=== PATIENT | male | born 1935 | race Caucasian/White ===

== ENCOUNTER 2022-11-22 18:26 | Emergency (ER) | payer MEDICARE, OTHER ==
[~2022-11-22] VITALS: Ht 162.6 cm; Wt 68.0 kg
[~2022-11-22 18:26] MED LIST: AMLO10 PO; ASPI81CH PO; Ativan0.5 MG PO; INTUNIV2 MG PO; MECL25 PO
[2022-11-22 18:37] VITALS: BP 232/97
[2022-11-22 19:01] LABS: BASOPHILS ABSOLUTE AUTO 0.09 K/mm3 (0.00-0.23); BASOPHILS PERCENT AUTO 2 % (0-2); EOSINOPHILS ABSOLUTE AUTO 0.15 K/mm3 (0.00-0.68); EOSINOPHILS PERCENT AUTO 3 % (0-6); Hematocrit 36.4 % (37.0-53.0); IMMATURE GRAN ABSOLUTE AUTO 0.01 K/mm3 (0.00-0.10); IMMATURE GRAN PERCENT AUTO 0 % (0-1); LYMPHOCYTES ABSOLUTE AUTO 1.47 K/mm3 (0.84-5.20); LYMPHOCYTES PERCENT AUTO 24 % (21-46); MONOCYTES ABSOLUTE AUTO 0.58 K/mm3 (0.16-1.47); MONOCYTES PERCENT AUTO 10 % (4-13); Mean Corpuscular HGB 30.8 pg (26.0-34.0); Mean Corpuscular Volume 94 fL (80-100); Mean Platelet Volume 11.2 fL (9.1-12.4); NEUTROPHILS PERCENT AUTO 62 % (41-73); Platelet Count 227 K/mm3 (150-400); RDW Coefficient Variation 13.4 % (11.7-14.2); RDW Standard Deviation 46.3 fL (35.1-46.3); Red Blood Cell Count 3.89 M/mm3 (4.30-5.90)
[2022-11-22 19:20] LABS: Albumin, Blood 3.7 g/dL (3.4-5.0); Albumin/Globulin Ratio 0.9 (0.8-1.8); Bilirubin, Total 0.8 mg/dL (0.1-1.0); Calcium, Blood 8.9 mg/dL (8.5-10.1); Creatinine, Blood 1.42 mg/dL (0.60-1.20); Globulin, Blood 3.9 g/dL (2.2-4.0); Magnesium, Blood 2.1 mg/dL (1.6-2.4); Potassium, Blood 3.7 mmol/L (3.5-5.5); Total Protein, Blood 7.6 g/dL (6.4-8.2)
[2022-11-22] MEDS ORDERED: GUANFACINE HCL2 M1 PO (22:25)
== END 2022-11-22 22:45 | disposition home or self-care (01) ==
LOC: ER 18:26
PROVIDERS: Physician Assistant
DX: S00.81XA Abrasion of other part of head, initial encounter (principal); W19.XXXA Unspecified fall, initial encounter; Z88.0 Allergy status to penicillin; Z88.1 Allergy status to other antibiotic agents; Z88.7 Allergy status to serum and vaccine; Z79.82 Long term (current) use of aspirin; Z79.899 Other long term (current) drug therapy; I10 Essential (primary) hypertension; R73.03 Prediabetes
CPT/HCPCS: 70450; 72125; 80053; 83735; 85025; 93005; 93010; 99284-25

== ENCOUNTER 2023-10-19 14:20 | Inpatient (IN) | payer OTHER, MEDICARE ==
[~2023-10-19] VITALS: Ht 177.8 cm; Wt 81.7 kg
[~2023-10-19 14:20] MED LIST changes: +GUANFACINE HCL2 M1 PO
[2023-10-19 14:42] LABS: BASOPHILS PERCENT AUTO 1 % (0-2); EOSINOPHILS ABSOLUTE AUTO 0.09 K/mm3 (0.00-0.68); EOSINOPHILS PERCENT AUTO 1 % (0-6); Hemoglobin 11.7 g/dL (13.5-17.5); IMMATURE GRAN ABSOLUTE AUTO 0.11 K/mm3 (0.00-0.10); IMMATURE GRAN PERCENT AUTO 2 % (0-1); LYMPHOCYTES ABSOLUTE AUTO 1.64 K/mm3 (0.84-5.20); LYMPHOCYTES PERCENT AUTO 22 % (21-46); MONOCYTES ABSOLUTE AUTO 0.38 K/mm3 (0.16-1.47); MONOCYTES PERCENT AUTO 5 % (4-13); Mean Corpuscular HGB 30.8 pg (26.0-34.0); Mean Corpuscular HGB Conc 32.5 g/dL (31.5-36.5); Mean Corpuscular Volume 95 fL (80-100); Mean Platelet Volume 11.3 fL (9.1-12.4); NEUTROPHILS ABSOLUTE AUTO 5.13 K/mm3 (1.96-9.15); NEUTROPHILS PERCENT AUTO 69 % (41-73); Platelet Count 217 K/mm3 (150-400); RDW Coefficient Variation 13.3 % (11.7-14.2); White Blood Cell Count 7.45 K/mm3 (4.00-11.30)
[2023-10-19 15:00] LABS: International Normalized Ratio 0.98; Prothrombin Time Results 10.5 Sec (9.7-11.5)
[2023-10-19 15:16] LABS: Alanine Aminotransfer (ALT/SGP 31 U/L (12-78); Albumin, Blood 3.9 g/dL (3.4-5.0); Albumin/Globulin Ratio 1.1 (0.8-1.8); Alk Phos 100 U/L (50-136); Anion Gap 9 mmol/L (3-11); Aspartate Aminotrans (AST/SGOT 39 U/L (12-37); Bilirubin, Total 1.3 mg/dL (0.1-1.0); Blood Urea Nitrogen 25 mg/dL (8-24); Bun/Creatinine Ratio 15.2 (12.0-20.0); CO2, Blood 25 mmol/L (21-32); Calcium, Blood 9.1 mg/dL (8.5-10.1); Chloride, Blood 108 mmol/L (98-108); Creatinine, Blood 1.65 mg/dL (0.60-1.20); Ethanol (Alcohol), Blood, Med <3 mg/dL; Globulin, Blood 3.7 g/dL (2.2-4.0); Glomerular Filtration Rate 40 (60-); Glucose, Blood 132 mg/dL (70-99); Potassium, Blood 4.2 mmol/L (3.5-5.5); Sodium, Blood 138 mmol/L (136-145); Total Protein, Blood 7.6 g/dL (6.4-8.2)
[2023-10-19] MEDS ORDERED: LORazepam 2 MG/ML 1ML Injection IV ONE (15:40)
[2023-10-19 16:19] LABS: Source, Urine Voided
[2023-10-19 16:21] LABS: Appearance, Urine Clear (Clear); Bilirubin, Urine Neg (Neg); Blood, Urine 4+ (Neg); Color, Urine Yellow (P-Yellow); Glucose Qualitative, Urine Neg (Neg); Ketones, Urine Neg (Neg); Leukocyte Esterase, Urine Neg (Neg); Nitrite, Urine Neg (Neg); Protein, Urine 2+ (Neg); Urobilinogen, Urine NORM (Normal); pH, Urine 6.5 (5.0-8.0)
[2023-10-19 16:31] LABS: Bacteria Rare /hpf; Mucus Light (0-Heavy); Squamous Epithelial Cells Rare /hpf (Few); White Blood Cells, Urine 0-2 /hpf (0-5)
[2023-10-19 16:32] LABS: Hyaline Casts 0-2 /lpf (0-2)
[2023-10-19] MEDS ORDERED: DiphenhydrAMINE HCl 50 MG/ML 1ML Vial IV ONE (16:50)
[2023-10-19] MEDS ORDERED: Haloperidol Lactate Inj. 5 MG/ML Injection IV ONE (16:50)
[2023-10-19] MEDS ORDERED: OLANZapine ODT 5 MG Tab MM PRN (18:05)
[2023-10-19] MEDS ORDERED: Magnesium Hydroxide Conc 10 ML UDC PO PRN (18:10)
[2023-10-19] MEDS ORDERED: TraMADol HCl 50 MG Tab PO PRN (18:10)
[2023-10-19] MEDS ORDERED: TraZODone HCl 50 MG Tab PO PRN (18:10)
[2023-10-19] MEDS ORDERED: Acetaminophen 325 MG TABLET PO PRN (18:10)
[2023-10-19] MEDS ORDERED: GUANFACINE HCL2 M1 PO (19:16)
[2023-10-19 19:32] VITALS: BP 154/67
[2023-10-19] MEDS ORDERED: AmLODIPine Besylate 5 MG Tab PO SCH (21:00)
[2023-10-19] MEDS ORDERED: GuanFACINE HCl 1 MG Tab PO SCH (21:00)
[2023-10-19 22:02] LABS: U Amphetamine Screen Not Detected; U Barbituate Screen Not Detected; U Benzodiazapine Screen Not Detected; U Buprenorphine Screen Not Detected; U Cannabinoids Screen Not Detected; U Cocaine Screen Not Detected; U Methadone Screen Not Detected; U Methamphetamine Screen Not Detected; U Opiates Screen Not Detected; U Oxycodone Screen Not Detected; U Phencyclidine Screen Not Detected
--- NOTE | 2023-10-20 03:28 | NUR ---
LATE ENTRY FOR 1930 ON 10/19/23: ADMISSION:PATIENT IS RECIEVED FROM ER, DAUGHTER IS AT BEDSIDE. PATIENT IS VERY [place], NEEDS HEARING AIDES PER DAUGHTER. PATIENT AND DAUGHTER ARE ORIENTED TO THE ROOM AND CALL CORTES, PATIENT IS UNRESEPTIVE. BP IS SLIGHTLY ELEVATED, PATIENT IS RESTLESS, BED ALARM IS ON. DAUGHTER WILL BE STAYING UNTIL 1 ON 1 SITTER ARRIVES.
[2023-10-20 04:35] VITALS: BP 150/83
[2023-10-20] MEDS ORDERED: Morphine Sulfate 4 MG/1 ML Injection IV ONE (05:10)
--- NOTE | 2023-10-20 05:30 | NUR ---
Patient is refusing PO medications with sips of water. Was able to take HS meds without difficulty. Scoring [address] Thomas was notified and an order for 2 mg of IV morphine x1 was obtained and meds was given. Patient does resist inc. care and T&P at times. Patient is extremly [place] and needs hearing aids per his daughter.
[2023-10-20 06:01] LABS: Albumin, Blood 3.8 g/dL (3.4-5.0); Bilirubin, Total 2.3 mg/dL (0.1-1.0); Bun/Creatinine Ratio 16.1 (12.0-20.0); Calcium, Blood 9.1 mg/dL (8.5-10.1); Creatinine, Blood 1.55 mg/dL (0.60-1.20); Potassium, Blood 4.5 mmol/L (3.5-5.5); Total Protein, Blood 7.8 g/dL (6.4-8.2)
--- NOTE | 2023-10-20 06:39 | NUR ---
Patient had good effect from IV morphine and is resting comfortably. Stter remains at bedside.
[2023-10-20 07:13] VITALS: BP 154/65
[2023-10-20] MEDS ORDERED: Enoxaparin 40 MG/0.4 ML SYR SC SCH (09:00)
[2023-10-20 15:30] VITALS: BP 186/107
[2023-10-20] MEDS ORDERED: OLANZapine ODT 5 MG Tab MM PRN (16:20)
--- NOTE | 2023-10-20 16:39 | NUR ---
PROVIDER CONTACT PATIENT WITH INCREASING AGITATION, ANXIETY, AND SBP IN 180s. ATTENDING NOTIFIED VIA PHONE AND STATED SHE WOULD INCREASE SCHEDULED BP MEDICATION WELL INCREASE FREQUENCY OF ZYPREXA.
[2023-10-20] MEDS ORDERED: Metoprolol Succinate 25 MG TABCR PO SCH (17:00)
--- NOTE | 2023-10-20 19:09 | NUR ---
SHIFT SUMMARY PATIENT DISORIENTEDX4, UNCOOPERATIVE WITH CARE D/T CONFUSION. WENT TO BEDSIDE COMMODE X2 THIS SHIFT WITH 2 PERSON ASSIST. PATIENT'S DAUGHTER AT BEDSIDE MOST OF SHIFT TODAY. PT/OT ORDERED TODAY, BUT NOT YET ASSESSED. PSYCH EVAL WAS ORDERED AND MD STATED WILL ASSESS PATIENT 10/20 IN THE MORNING. PATIENT SHOWING S/S OF PAIN, MEDICATED PER JUN. WAS GIVEN ZYPREXA THIS AM DUE TO AGITATION AND BEING COMBATIVE WITH STAFF. NO OTHER CONCERNS AT THIS TIME.
[2023-10-20 20:32] VITALS: BP 143/122
[2023-10-20] MEDS ORDERED: Morphine Sulfate 4 MG/1 ML Injection IV PRN (20:45)
[2023-10-20] MEDS ORDERED: OLANZapine 10 MG Vial IM ONE (20:45)
[2023-10-21] VITALS (7 sets, daily range): BP systolic 123–216; BP diastolic 78–170
[2023-10-21] MEDS ORDERED: Morphine Sulfate 4 MG/1 ML Injection IV ONE (02:00)
[2023-10-21] MEDS ORDERED: Morphine Sulfate 4 MG/1 ML Injection IV PRN (02:00)
--- NOTE | 2023-10-21 02:42 | NUR ---
AGGITATION: PATIENT STARTED TEARING BRIEF OFF, TRYING TO GET UP OUT OF BED. PATIENT IS UNDIRECTABLE, WILL NOT TAKE ANY PO FLUIDS OR FOOD. SCORES A 7 ON FLACC SCALE BUT IT IS TO EARLY FOR IV MORPHINE FOR PAIN. DR MERLOS IS NOTIFIED AND MORPHINE DOSE FREQUENCE IS CHANGED TO Q4H WITH A NOW DOSE. PATIENT WAS GIVEN MORPHINE WITH FAIR EFFECT. PATIENT IS CALMER IN BED, WITH BED ALARM ON. SITTER HAS DIRECT OBSERVATION OF PAYIENT FROM THE DOOR. PATIENT WILL NOT KEEP BRIEF OR GOWNED ON.
--- NOTE | 2023-10-21 04:07 | NUR ---
PATIENT CONTINUES TO BE RESTLESS AND EASILY AGGITATED. WILL NOT KEEP BRIEF OR GOWN ON. REFUSING PO INTAKE INCLUDING MOST MEDS. PING PONG TABLE ASSEMBLER WAS ABLE TO ADMINISTER A SL DOSE OF ZYPREXA THIS AM WITH FAIR EFFECT. DAYANARA HAS PATIENT IN CONTINUOS OBSERVATION.
--- NOTE | 2023-10-21 07:09 | NUR ---
LATE ENTRY FOR 10/20/23 @ 2130: PATIENT IS AGGITATED AND AGRESSIVE WITH STAFF. ON HIS FEET TRYING TO PUSH PASSED SENIOR AGRICULTURAL ASSISTANT, "I AM GETTING OUT OF HERE". PATIENT REFUSED TO TAKE ORAL ZYPREXA OR PAIN MEDS OR ANY PO INTAKE. DR AZAR WAS NOTIFIED AND ORDERS WERE OBTAINED FOR IN ZYPREXA AND IV MORPHINE. BOTH WERE GIVEN WITH GOOD EFFECT. SITTER IS NOW IN PLACE, KEEPING PATIENT IN VIEW AT ALL TIMES, BED ALARM IS ON.
[2023-10-21 09:04] LABS: Albumin, Blood 3.9 g/dL (3.4-5.0); Bilirubin, Total 2.2 mg/dL (0.1-1.0); Bun/Creatinine Ratio 19.9 (12.0-20.0); Calcium, Blood 8.9 mg/dL (8.5-10.1); Creatinine, Blood 1.51 mg/dL (0.60-1.20); Globulin, Blood 3.9 g/dL (2.2-4.0); Potassium, Blood 4.1 mmol/L (3.5-5.5); Total Protein, Blood 7.8 g/dL (6.4-8.2)
--- NOTE | 2023-10-21 09:09 | NUR ---
SBP 215, MD AWARE.
--- NOTE | 2023-10-21 11:30 | NUR ---
SPOKE WITH MD REGARDING PATIENT'S DAUGHTER'S REQUEST FOR IV FLUIDS. PATIENT'S INTAKE IS LOW, REFUSING BEVERAGES WHEN OFFERED AND REFUSING MEALS TODAY. PATIENT BECOMES COMBATIVE WHEN CARE IS ATTEMPTED DUE TO CONFUSION AND DISORIENTATION. INFORMED PATIENT'S DAUGHTER THAT AT THIS TIME PATIENT WOULD NOT LIKELY TOLERATE IV HYDRATION HE IS PULLING AT LINES AND REMOVING ALL CLOTHING AND BLANKETS. DISCUSSED REQUEST WITH MD AND SHE STATED SHE WOULD SPEAK TO THE PATIENT'S DAUGHTER.
[2023-10-21] MEDS ORDERED: HydrALAZINE HCl 20 MG / ML 1ML Vial IV PRN (12:15)
[2023-10-21] MEDS ORDERED: Tamsulosin HCl 0.4 MG Cap PO SCH (14:00)
--- NOTE | 2023-10-21 15:12 | NUR ---
PATIENT BP 217/170, HYDRALAZINE IV ATTEMPTED TO BE ADMINISTERED AND IV NO LONGER FUNCTIONING. PATIENT ALSO WITH TREMOR, PATIENT'S HAND WAS HELD STILL WHILE TAKING VITAL SIGNS. ATTEMPTED TO CALL MD TO INFOMR OF PATIENT'S STATUS, NO ANSWER. WILL ATTEMPT TO REACH HER AGAIN. WILL ALSO ATTEMPT TO PLACE NEW PIV, HOWEVER PATIENT IS COMBATIVE WHEN CARE IS PROVIDED.
--- NOTE | 2023-10-21 16:25 | NUR ---
NEW PIV PLACED TO LEFT WRIST 22G. PATIENT TOLERATED WELL AND WAS NOT COMBATIVE DURING PLACEMENT. BP WAS RETAKEN AND 188/90, PRN HYDRALAZINE GIVEN AND BP LOWERED TO 166/78. PALLIATIVE CARE CONSULTED AND STATED THEY WILL SPEAK WITH MD. PATIENT CONTINUES WITH TREMORS. PSYCH EVAL WAS COMPLETED.
--- NOTE | 2023-10-21 17:26 | NUR ---
PATIENT TRANSFERRED FROM [facility] TO ROOM 351, REPORT RECEIVED FROM LINDSAY. 2 RN SKIN CHECK PERFORMED WITH LINDSYA ON TRANSFER. PATIENT DROWSY, WAKES TO VOICE. CONFUSED THROUGHOUT THE DAY. B/P ELEVATED, MEDICATION ADJUSTED AND IV HYDRALAZINE GIVEN. B/P DOWN TO 166/78. 1:1 CLININCAL SITTER AT BEDSIDE FOR SAFETY. PATIENT NOT EATING OR DRINKING. PALLIATIVE CARE INVOLVED.
--- NOTE | 2023-10-21 17:54 | NUR ---
DISCUSSED PATIENT WITH MULTIDICIPLINARY TEAM. DISCUSSED CASE WITH BEDSIDE RN AND PROVIDER. SPOKE WITH ON THE PHONE, SHE REPORTED THAT FRANCO HAS HAD SOME TIA'S OVER THE LAST FEW YEARS, HAS HAD SOME CONFUSION. SHE REPORTED HAT HE HAS BEEN SLEEPING MORE DURING THE DAY AND GOING TO BED EARLIER. SHE REPORTED THAT HE ONLY DRINKS ABOUT 4 16 OZ GLASSES OF WATER A DAY. SHE SAID HE IS HARD OF HEARING. REPORTED THEY HAD THEIR 65 YEAR ANIVERSERY OCTOBER 11. WE DISCUSSED HIS CURRENT CONDITION AND CONFUSION. DISCUSSED HIS POOR ORAL FLUID INTAKE AND THE CONCERN ABOUT GETTING IV FLUIDS IN WITHOUT HIM PULLING THE IV OUT. SHE EXPRESSED THAT SHE WOULD BE OK WITH RESTRAINING HIM IF THATS WHAT IT WILL TAKE. WE DISCUSSED CODE STATUS. SHE WILL DISCUSS THIS WITH HER DAUGHTER BUT IS INCLINED TO LEAVE HIM FULL CODE FOR NOW. PC WILL REMAIN AVALIABLE
[2023-10-22 03:48] VITALS: BP 170/96
--- NOTE | 2023-10-22 04:46 | NUR ---
END OF SHIFT SUMMARY PTS DAUGHTER WAS AT BEDSIDE UNTIL ABOUT 2100. PT HAS BEEN CONFUSED AND APPEARS TO EXPERIENCE SOME VISUAL HALLUCINATIONS. HE GETS A BIT AGITATED WITH PAIN, BUT BECOMES MUCH MORE CALM WITH PAIN MEDICATIONS. AT TIMES BECOMES VERY RESISTIVE TO CARES WHEN HE HAS AN EPISODE OF INCONTINENCE. HE BECOMES SO AGIATED WITH BLOOD PRESSURE CHECKS THAT WE USED A MANUAL BLOOD PRESSURE TO GET AN ACCURATE READ. ENCOURAGED PO INTAKE MULTIPLE TIMES BUT HE ONLY TAKES SMALL SIPS OF FLUIDS AND A BITE OR TWO AT A TIME. FALL PRECAUTIONS IN PLACE. SITTER AT BEDSIDE.
[2023-10-22 06:28] LABS: Hematocrit 33.5 % (37.0-53.0); Hemoglobin 11.2 g/dL (13.5-17.5); Mean Corpuscular HGB Conc 33.4 g/dL (31.5-36.5); Mean Corpuscular Volume 93 fL (80-100); Mean Platelet Volume 12.4 fL (9.1-12.4); Platelet Count 199 K/mm3 (150-400); RDW Coefficient Variation 13.2 % (11.7-14.2); RDW Standard Deviation 45.1 fL (35.1-46.3); Red Blood Cell Count 3.61 M/mm3 (4.30-5.90); White Blood Cell Count 14.03 K/mm3 (4.00-11.30)
[2023-10-22 07:20] LABS: Bun/Creatinine Ratio 24.1 (12.0-20.0); Calcium, Blood 8.8 mg/dL (8.5-10.1); Creatinine, Blood 1.41 mg/dL (0.60-1.20); Potassium, Blood 4.3 mmol/L (3.5-5.5); Thyroid Stimulating Hormone 2.84 uIU/mL (0.360-4.800)
[2023-10-22 07:26] VITALS: BP 180/76
[2023-10-22] MEDS ORDERED: Metoprolol Succinate 50 MG TABCR PO SCH (09:00)
--- NOTE | 2023-10-22 10:33 | NUR ---
MD CALL PT PULLED OUT PIV THIS AM. DR STUBBS AWARE, OK FOR NO PIV ORDER. BLOOD PRESSURE READING HIGH BUT PT AGGITATED, TRYING TO CLIMB OUT OF BED, IRRITATED WITH NURSING CARE AND PUSHING AWAY STAFF WHEN BEING HELPED. TRIED GIVING PO MEDS BUT HE SPAT THEM OUT. HE HAS NOT TAKEN ANY FOOD OR FLUIDS THIS AM. DR STUBBS CALLED - SHE SAID SHE IS ENTERING IM ZYPREXA ORDER. SITTER AT BEDSIDE.
[2023-10-22] MEDS ORDERED: OLANZapine 10 MG Vial IM PRN (10:40)
--- NOTE | 2023-10-22 13:42 | NUR ---
MD CALL MR HULL IS LYING IN BED KICKING HIS LEGS AND RIGIDLY MOVING HIS ARMS. SITTER AT BEDSIDE. MOUTH IS DRY, HE HAS NOT TAKEN ANYTHING ORALLY TODAY NOR ALLOWED ORAL CARE. BLOOD PRESSURE NOT RECHECKED PT IS RESISTANT AND I DON'T THINK IT WOULD BE ACCURATE. DR STUBBS CALLED AND STATUS DISCUSSED WITH HER. NO NEW ORDERS AT THIS TIME.
[2023-10-22] MEDS ORDERED: Morphine Sulfate 20 MG/1ML 1 ML Oral Syringe SL ONE (15:35)
--- NOTE | 2023-10-22 16:39 | NUR ---
SHIFT SUMMARY MR HULL SAYS SOME WORDS CLEARLY "GET OFF ME" "LEAVE ME THE F ALONE" BUT HAS NOT BEEN VERBALLY RESPONDING TO QUESTIONS OR REQUESTS. HE HAS SEEMED AGGITATED TODAY, RIGID MOVEMENTS OF ARMS AND LEGS. HE HAS PHYSICALLY PUSHED ME AWAY WHEN I HAVE TRIED TO GIVE PO MEDICATIONS OR DO ORAL CARE. MOUTH IS VERY DRY. ZYPREXA IM DID NOT APPEAR TO HELP TO CALM HIM. ROXINOL DID HELP HIM TO SETTLE FOR A WHILE. HE PULLED OUT PIV THIS MORNING AND HAS BEEN WITHOUT IV ACCESS. SITTER AT BEDSIDE. HIS AND DAUGHTER CAME TO THE BEDSIDE AND HAD A MEETING IN PT'S PRESENCE WITH PALLIATIVE CARE AND DR STUBBS. FAMILY HAVE LEFT THE UNIT AND SAID THEY ARE CONSIDERING COMFORT CARE MEASURES AND HAVE NOT DECIDED YET. HE HAS NOT VOIDED SINCE INCONTINENT VOID THIS AM. BLADDER SCAN ~100CC. BED LOW, CALL LIGHT IN REACH, BED ALARM ON.
--- NOTE | 2023-10-22 16:51 | NUR ---
MET WITH PATIENT AND FAMIMLY. PROVIDER AND PALLIATICE CARE RN DISCUSSED HIS PROGNOSIS AND OPTIONS FOR GOALS OF CARE. WE DISCUSSED THE POSIBILITY OF RESTRAINING FRANCO AND PROVIDING FLUIDS BUT EXPRESSED CONCERN FOR INCREASED AGITATION AND POSSIBLE INJURY. HE IS NOT EATING OR DRINKING. HE IS GRABBING INTO THE AIR, AND NONSENSICAL RESPONSES. WE DISCUSSED HOSPICE WITH FAMILY DUE TO CHIU CHANGE OF MENTATION AND THE IMAGING RESULTS INDICATING VASCULAR DEMENTIA. FAMILY WILL DISCUSS AND TOUCH BASE WHEN A DECISION IS MADE.
[2023-10-22 17:59] VITALS: BP 170/98
[2023-10-22] MEDS ORDERED: Morphine Sulfate 20 MG/1ML 1 ML Oral Syringe PO PRN (18:00)
[2023-10-22 19:42] VITALS: BP 180/93
[2023-10-23 03:32] VITALS: BP 189/111
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
[2023-10-23 07:17] VITALS: BP 188/86
[2023-10-23] MEDS ORDERED: CefTRIAXone Sodium 2,000 MG in NS 100 ML IV SCH (09:00)
[2023-10-23] MEDS ORDERED: Atropine Sulfate 1% Opth Soln 2ML BTL SL PRN (15:25)
[2023-10-23] MEDS ORDERED: LORazepam 1 MG Tab PO PRN (15:25)
--- NOTE | 2023-10-23 16:57 | NUR ---
SHIFT SUMMARY: PT IS A&0X0-2 (NONE, SELF, PERSON-FAMILY), HE HAS BEEN RESTLESS/FIGETTY ALL DAY, C/O PAIN, CAN BE DIFFICULT TO REDIRECT WHEN TRYING TO GET OUT OF BED. HAS A 1:1 SITTER, DAUGHTER IS AT BEDSIDE. PATIENT DID TAKE A FEW BITES OF BREAKFAST AND LUNCH WITH A FEW SIPS OF LIQUIDS; NO DIFFICULTY CHEWING/SWALLOWING. HE HAS BEEN INCONTIENT. HE WAS TRANSITIONED TO COMFORT CARE, AWAITING PLACEMENT AT [facility] FOR H[facility]PICE. HE IS CURRENTLY IN BED, 1:1 SITTER AND DAUGHTER PRESENT, NO SIGNS OR SYMPTOMS OF DISTRESS, RESTLESS/ANXIOUS/FIGETTY, PAIN AND ANXIETY MEDS GIVEN, PLAN OF CARE ONGOING.
[2023-10-23] MEDS ORDERED: Trimethoprim/Sulfamethoxazole DS Tab PO SCH (21:00)
[2023-10-24] MEDS ORDERED: Scopolamine Hydrobromide Patch TOP PRN (01:15)
--- NOTE | 2023-10-24 06:22 | NUR ---
SHIFT SUMMARY NOC PT A/O X 1. PUT ON COMFORT CARE MEASURES YESTERDAY AND LOOKING TO GO TO [place] [facility] HOSPICE. PT HAS SITTER IN PLACE FOR SAFETY, BUT HAS NOT ATTEMPTED TO GET OOB [employer]. PT HAS SLEPT ENTIRETY OF SHIFT. PT UPPER LOBES STARTING TO SOUND WET, ATROPINE AND SCOPOLAMINE PATCH STARTED TO CONTROL SECRETIONS, WELL INTERMITTENT SUCTION. INVOLUNTARY MOVEMENTS HAVE BEEN MINIMAL COMPARED TO PREVIOUS NOC SHIFT. UNABLE TO SAFELY ADMINISTER HS ABX AND BP RX DUE TO PT SOMNOLENCE DUE TO HIGH ASPIRATION RISK. THERE IS A VIRTUAL SUPERVISOR BROODER [employer]ARM IN ROOM IN CASE SITTER NOT AVAILABLE FOR DAY SHIFT. PT IS CURRENTLY RESTING WITH SITTER AND BED ALARM IN PLACE, BED IN LOWEST POSITION, AND CALL LIGHT WITHIN REACH.
--- NOTE | 2023-10-24 07:43 | NUR ---
ASSESSED FRANCO AND DISCUSSED CARE WITH DAUGHTER LOLLY. HER AND HER MOTHER ABIDA HAD DISCUSSED TREATMENT OPTION AND DECIDED TO TRANSITION FRANCO TO [facility] WITH [facility]. WILL COORDINATE WITH CASE MANAGMENT ON THIS. LOLLY AND I DISCUSSED THAT THE PROCESS MAY NOT BEGIN UNTIL TOMORROW DUE TO THE HOLIDAY AND THE TIME OF DAY. DISCUSSED WITH DR. DAVIS AND CC ORDERS WERE PLACED. PC WILL CONTINUE TO FOLLOW
--- NOTE | 2023-10-24 08:16 | NUR ---
ASSESSED PATIENT, HE WAS LYING IN BED ASLEEP. HE IS LESS ALERT TODAY THAN HE WAS YESTERDAY. DISCUSSED CASE WITH DIRECTOR EXPERIMENTAL MEDICINE RN [email or web address]. HE REPORTED THAT THE PATIENT BECAME LESS ALERT AROUND 2 AM AND HAS BEEN SOMULENT EVER SINCE. HE ADMINISTERED ATROPINE AND APPLIED A SCOPE PATCH TO HELP WITH SECREATIONS THAT HAD INCREASED OVER THE NIGHT. PATIENT APPEARS COMFORTABLE AT THIS TIME, FACE IS RELAXED.
--- NOTE | 2023-10-24 08:17 | NUR ---
PT LUNG SOUNDS CONTINUE TO GET WETTER. PT APPEARS COMFORTABLE SLEEPING IN BED,BUT UPPER LOBES ARE WET. PT HAS BEEN GIVEN ATROPINE AND HAS SCOPOLAMINE PATCH IN PLACE. ATTEMPTED TO CALL PT DAUGHTER SHELL, BUT IT WENT TO VOICEMAIL AND MESSAGE LEFT LETTING HER KNOW CHANGE IN PT CONDITION. PT APPEARS COMFORTABLE AND IS UNRESPONSIVE AT THIS TIME.
--- NOTE | 2023-10-24 08:24 | NUR ---
NOC RN CALLED FAMILY AT SHIFT CHANGE TO NOTIFY OF CHANGE OF STATUS OF PATIENT. CALLED DAUGHTER SHELL, NO ANSWER LMOM.
--- NOTE | 2023-10-24 10:14 | NUR ---
PATIENT'S DAUGHTER SHELL RETURNED CALL; NOTIFIED HER OF HER FATHER'S CHANGE IN CONDITION AND TRANSITION TO /DYING. SHELL VOICED UNDERSTANDING THAT SHE WILL BE HEADING OVER SOON.
--- NOTE | 2023-10-24 10:57 | NUR ---
"Spiritual Care Visit | Palliative Nurse Request Pt. is on comfort care and is not responsive. Daughter is at bedside and welcomes my visit. facilitated a life review of the Pt. with his daughter. Daughter varbalizes that he lied his life in the temple tradition. Milena iw interest, empathy and a calming presence. Daughter varbalized that she would be bringing the Pts. spouse to the bedside today. Daughter displayed evidence of appropriate grief and also shared that she had lost her spouse in 2020. With theraputic listening and a calming presence the daughter then displayed evidence of understanding. Prayed with Pt. Arnie verbalized gratitude for the spiritual care visit and welcmoed this certified nurse aide to return, especially when spouse is bedside."
--- NOTE | 2023-10-24 17:58 | NUR ---
SHIFT SUMMARY: PATIENT IS ON COMFORT CARE DID TRANSITION/CHANGE IN STATUS DURING THE NIGHT, NOT RESPONSIVE; WILL OPEN EYES TO STIMULI. MOUTH BREATHING/MOIST; ROXANOL/ATROPINE GIVEN NEEDED. FAMILY AT BEDSIDE. Q2HR TURNS/REPOSITIONING. PLAN OF CARE ONGOING.
--- NOTE | 2023-10-25 05:12 | NUR ---
SHIFT SUMMARY PATIENT REMAINED ON COMFORT CARE PROTOCAL ALL NIGHT, DAUGHTER CAME AND STAYED FOR QUITE A WHILE SHE IS HOME AT THIS TIME.
--- NOTE | 2023-10-25 18:43 | NUR ---
SHIFT SUMMARY: PATIENT REMAINS UNRESPONIVE; HE WILL OPEN EYES AND HAVING INVOLUNTARY MUSCLE MOVEMENT; TREMORS WITH POSITION CHANGES. MEDICATING NEEDED. PATIENT BREATHES SWALLOW AND MOIST. SHOWING SIGNS OF MODELING AND BODY IS STIFF. PATIENT'S DAUGHTER WISHES TO [facility]ED WITH [facility] IF PATIENT ALIVE AND SIMILAR STATUS COME FRIDAY. PALLATIVE AND CARE MANAGEMENT NOTIFIED. HE IS IN BED, SUSPINE-MORE ON L SIDE; MOUTH OPENING BREATHING. PATIENT'S PASSING APPEARS TO BE MORE IMMIMENT THIS EVENING THAT HE WAS THIS MORNING. PLAN OF CARE ONGOING.
--- NOTE | 2023-10-26 18:41 | NUR ---
SUMMARY- PT COMATOSE, OPENS EYES WHEN TURNING. PAINFUL ON THE L ARM AND SIDE WITH MOVEMENT. MEDICATED WITH OXYCODONE X2 THIS SHIFT TO CONTROL PAIN. PT NOT EATING OR DRINDING. TURNED Q2. SKIN INTACT. INCONT, MIN U.O DAUGHTER IN ROOM VISITING MOST OF THE DAY. SEEMS TO BE COPING EFFECTIVELY
--- NOTE | 2023-10-27 04:55 | NUR ---
SHIFT SUMMARY PATIENT STILL HANGING IN THERE, DID NOT REQUIRE PAIN OR ANXIETY MEDS. RESTING PEACFULLY ON RIGHT SIDE. DID GIVE SEVERAL DOSES OF ATROPINE. DAUGHTER STAYING IN ROOM. SHE IS COMFORTABLE WITH NOT GIVING HIM TOO MUCH MEDICATIONS AND WILL LET ME KNOW IF SHE DECIDES TO MEDICATE HIM MORE AGGRESSIVLY.
--- NOTE | 2023-10-27 16:34 | NUR ---
SHIFT SUMMARY REPORT GIVEN TO BRENNA GÓMEZ. TRANSFERRED PATIENT TO ROOM 359 AT 1630. NO ACUTE EVENTS THIS SHIFT. PATIENT ASLEEP, LUNG SOUNDS MOIST T/O. ATROPINE DROPS GIVEN PRN. FAMILY HAS NOT BEEN IN THE ROOM ALL SHIFT, BUT HAVE CALLED TWICE. REPOSITIONED Q2HRS. CURRENTLY RESTING IN BED IN NO APPARENT DISTRESS.
--- NOTE | 2023-10-28 04:14 | NUR ---
WATER PUMP INSTALLER SUMMARY REMAINS ON COMFORT CARE, DAUGHTER AT BEDSIDE. REPOSITIONED AND MEDICATED FOR AIR HUNGER AND PAIN - SEE MAR FOR DETAILS. HOB ELEVATED. CALL LIGHT IN REACH, RAILS UP X 2 AND BED IN LOW POSITION FOR SAFETY. WILL CONT TO MONITOR AND IF S/S CLOSE TO EXPIRING WILL NOTIFY SPIRITUAL CARE PER DAUGHTER REQUEST.
--- NOTE | 2023-10-28 04:40 | NUR ---
PT EXPIRATION NOTE AT 0435 DAUGHTER CALLED NURSE INTO ROOM TO CHECK PT. NO OBSERVED RESPS. (2) NURSES: AYAAN CANALES AND MYSELF LISTENED TO HEART PER AUSCULTATION AND CHECKED PULSE OF WRISTS. NO NOTED SOUNDS OR PULSES FELT. NO RESPS HEARD PER AUSCULTATION. CHARGE NURSE AND HAMMERER TAB NOTIFIED AND CALL PLACED TO MD FOR VERIFICAITION. SPIRITUAL PERSON ON HIS WAY IN FOR FAMILY COMFORT.
--- NOTE | 2023-10-28 04:48 | NUR ---
DR AZAR RETURNED CALL AND ACCEPTED 2 RN CALL OF PT EXPIRATION.
--- NOTE | 2023-10-28 05:20 | NUR ---
SPIRITUAL PERSON (LOY), IN ROOM WITH PATIENT AND DAUGHTER. WHEN LOY CAME OUT OF THE ROOM, HE SAID DAUGHTER MORE ACCEPTING. DAUGHTER LATER CAME OUT OF ROOM AND VOICED, "[facility]" IN [place] TO BE THE PLACE FOR PT TO BE TRANSFERRED TO. "FOR BURIAL AT [facility]" PT WAS [place] [employer]. CHARGE NURSE TO BE NOTIFIED. POST MORTEM CARE TO BE DONE.
--- NOTE | 2023-10-28 05:37 | NUR ---
After responding to a call-back from RN Machine Presser, I visit with patient's, dtr, Wilda, minutes after his demise. Wilda is the only family member present and is grieving appropriately. She is very tearful when I arrive but after a life review of the patient conducted, grief support offered, gentle anger control counselor and prayer provided, she is clearly comforted. She let's me know the home of choice and I give her grief support material. I let her RN know that [facility] in [place] is the chapel that Wilda and the family and had picked. I continue to remain available.
--- NOTE | 2023-10-28 06:04 | NUR ---
All final cares done after patient . sponge bathed, yellow gown placed, and clean fresh attend put on pt.
--- NOTE | 2023-10-28 06:10 | NUR ---
'BARBARA CM' HERE TO SCOW HAND PT BODY. TO TAKE BACK TO FACILITY IN [place].
== END 2023-10-28 06:26 | DRG 564 ==
LOC: ER 14:20 → MEDS 14:21 → ER 18:06 → MEDS 18:06 → SURS 18:06 → MEDS 19:10 → SURS 19:10 → MEDS 19:10 → ER 10-20 15:47 → MEDS 10-20 15:47 → SURS 10-20 15:47 → MEDS 10-20 15:48
PROVIDERS: Emergency Medicine; Internal Medicine; ADMIT Surgery
DX: S22.21XA Fracture of manubrium, initial encounter for closed fracture (principal); G92.8 Other toxic encephalopathy; F02.C11 Dementia in other diseases classified elsewhere, severe, with agitation; I67.82 Cerebral ischemia; N39.0 Urinary tract infection, site not specified; N13.8 Other obstructive and reflux uropathy; G30.9 Alzheimer's disease, unspecified; Z51.5 Encounter for palliative care; Z66 Do not resuscitate; N40.1 Benign prostatic hyperplasia with lower urinary tract symptoms; Z88.0 Allergy status to penicillin; Z88.1 Allergy status to other antibiotic agents; Z88.7 Allergy status to serum and vaccine; Z88.8 Allergy status to other drugs, medicaments and biological substances; Z79.82 Long term (current) use of aspirin; Z79.899 Other long term (current) drug therapy; K44.9 Diaphragmatic hernia without obstruction or gangrene; R31.29 Other microscopic hematuria; D63.1 Anemia in chronic kidney disease; I12.9 Hypertensive chronic kidney disease with stage 1 through stage 4 chronic kidney disease, or unspecified chronic kidney disease; E11.22 Type 2 diabetes mellitus with diabetic chronic kidney disease; S01.81XA Laceration without foreign body of other part of head, initial encounter; K80.50 Calculus of bile duct without cholangitis or cholecystitis without obstruction; N18.30 Chronic kidney disease, stage 3 unspecified; M50.30 Other cervical disc degeneration, unspecified cervical region; J92.9 Pleural plaque without asbestos; K57.30 Diverticulosis of large intestine without perforation or abscess without bleeding; Z85.46 Personal history of malignant neoplasm of prostate; Z86.73 Personal history of transient ischemic attack (TIA), and cerebral infarction without residual deficits; B96.1 Klebsiella pneumoniae [K. pneumoniae] as the cause of diseases classified elsewhere; T36.8X5A Adverse effect of other systemic antibiotics, initial encounter; V47.5XXA Car driver injured in collision with fixed or stationary object in traffic accident, initial encounter
CPT/HCPCS: 36415; 70450; 71260; 72125; 74177; 80048; 80053; 81001; 82607; 82746; 83690; 84443; 84484; 85025; 85027; 85610; 86850; 86900; 86901; 87077; 87086; 87186; 93005; 93010; 96372; 96374-59; 96375; 96375-59; 96376; 99285-25; A9270; G0103; G0378; J0360; J1200; J1630; J1650; J2060; J2270; Q9967